=== PATIENT | female | born 1970 | race Caucasian/White ===

== ENCOUNTER → 2016-09-30 | Outpatient (CLI) | payer OTHER | LOC: MC.RAD 09:46 | DX: Z12.31 Encounter for screening mammogram for malignant neoplasm of breast (principal) ==

== ENCOUNTER → 2017-10-02 | Outpatient (CLI) | payer OTHER | LOC: MC.RAD 14:39 | DX: Z12.31 Encounter for screening mammogram for malignant neoplasm of breast (principal) ==

== ENCOUNTER → 2019-01-20 | Outpatient (CLI) | payer OTHER | LOC: MC.RAD 01-04 08:45 | DX: Z12.31 Encounter for screening mammogram for malignant neoplasm of breast (principal) ==

== ENCOUNTER → 2020-02-24 | Outpatient (CLI) | payer OTHER | LOC: MC.RAD 10:41 | DX: Z12.31 Encounter for screening mammogram for malignant neoplasm of breast (principal) ==

== ENCOUNTER → 2021-02-28 | Outpatient (CLI) | payer OTHER ==
[~2021-02-28] MED LIST: BYSTOLIC5 MG PO; CRESTOR20 MG PO; ESTROVEN MAX400 MCG; LEVOXYL0.1 MG PO; NORCO 325 MG-51 TAB PO; NORVASC 5MG5 MG/TAB PO; PYRIDIUM 100MG100 MG PO; ZOLOFT 100MG100 MG PO
== END ==
LOC: MC.RAD 14:03
DX: Z12.31 Encounter for screening mammogram for malignant neoplasm of breast (principal)

== ENCOUNTER 2021-05-08 07:58 | Day surgery (SDC) | payer OTHER ==
[2021-05-08] VITALS (7 sets, daily range): BP systolic 107–129; BP diastolic 61–77; PULSE 63–73; TEMP 97.6–98.2
[~2021-05-08] VITALS: Ht 160 cm; Wt 76.1 kg
[2021-05-08] MEDS ORDERED: ZOLOFT 100MG100 MG PO (08:24)
[2021-05-08] MEDS ORDERED: BYSTOLIC5 MG PO (08:25)
[2021-05-08] MEDS ORDERED: NORVASC 5MG5 MG/TAB PO (08:25)
[2021-05-08] MEDS ORDERED: LEVOXYL0.1 MG PO (08:26)
[2021-05-08] MEDS ORDERED: CRESTOR20 MG PO (08:26)
[2021-05-08] MEDS ORDERED: ESTROVEN MAX400 MCG (08:27)
--- NOTE | 2021-05-08 08:50 | NUR ---
PATIENT ADMITTED INTO [facility] UNIT WALKING WITH A STEADY GAIT. ACCOMPANIED BY . PATIENT IS ALERT AND ORIENTED X 4. CONSENT EXPLAINED AND PATIENT SIGNED. ASSESSMENT COMPLETED. LUNGS CTA. HEART SOUNDS S1,S2 AND REGULAR. BOWEL SOUNDS HEARD. PEDAL PULSES +2.
--- NOTE | 2021-05-08 10:23 | NUR ---
Initial visit; Patient and her thanked Doll Wig Hackler for looking in on Margarita and offering comfort and prayer prior to her surgical procedure.
[2021-05-08] MEDS ORDERED: NORCO 325 MG-51 TAB PO (10:59)
[2021-05-08] MEDS ORDERED: PYRIDIUM 100MG100 MG PO (10:59)
--- NOTE | 2021-05-08 11:25 | NUR ---
PATIENT TRANSPORTED PER CART FROM PACU TO BAY 2 ACCOMPANIED BY MANAGER DIGITAL. MONITORS APPLED. VSS ON ROOM AIR. VERBAL REPORT RECEIVED. PATIENT'S IN ROOM. PATIENT RESTING WITH EYES CLOSED, DOES ANSWER QUESTIONS WHEN ASKED. PATIENT GIVEN ICE WATER TO DRINK.
--- NOTE | 2021-05-08 11:46 | NUR ---
VSS ON ROOM AIR. PATIENT MORE ALERT. TALKING WITH . PATIENT STATES HAS SOME BURNING BUT THIS IS TOLERABLE. DENIES NAUSEA. DECLINED FOOD AT THIS TIME.
--- NOTE | 2021-05-08 12:05 | NUR ---
VSS ON ROOM AIR. PATIENT WATCHING TV AND TALKING WITH . PATIENT STATES BURNING INCREASING ALITTLE. ENCOURAGED TO EAT FOOD THEN CAN GIVE PO PAIN MADE. PATIENT GIVEN SODA CRAKERS.
--- NOTE | 2021-05-08 12:21 | NUR ---
VSS ON ROOM AIR. PATIENT TOLERATES CRACKERS AND WATER WITHOUT PROBLEMS. PATIENT GIVEN PO PAIN MED ORDERED. PATIENT TALKS WITH STAFF AND .
--- NOTE | 2021-05-08 12:40 | NUR ---
VSS ON ROOM AIR. PATIENT AMBULATES TO RESTROOM WITH STEADY GAIT. PATIENT VOIDS WITHOUT PROBLEMS. PATIENT STATES PAIN MED IS BEGINING TO HELP. 1246 VSS CONTINUE STABLE. PATIENT DENIES NAUSEA. IV SITE DC'D WITH CATHETER TIP INTACT. PRESSURE AND BANDAGE APPLIED. 1250 DISCHARGE INSTRUCTIONS GIVEN VERBAL AND DISCHARGE PACKET GIVEN TO PATIENT. PATIENT AND VOICED UNDERSTANDING AND QUESTIONS ANSWERED. PATIENT CHANGES INTO STREET CLOTHES. 1255 PATIENT DISCHARGED PER WHEEL CHAIR [facility] .
== END 2021-05-08 12:55 | disposition home or self-care (01) ==
LOC: SDCO 07:58
DX: N30.90 Cystitis, unspecified without hematuria (principal); R39.89 Other symptoms and signs involving the genitourinary system; R30.0 Dysuria; R35.0 Frequency of micturition; I10 Essential (primary) hypertension; F41.9 Anxiety disorder, unspecified; F32.9 Major depressive disorder, single episode, unspecified; E03.9 Hypothyroidism, unspecified; K21.9 Gastro-esophageal reflux disease without esophagitis; E78.2 Mixed hyperlipidemia; Z20.822 Contact with and (suspected) exposure to COVID-19; Z79.890 Hormone replacement therapy; Z79.899 Other long term (current) drug therapy
CPT/HCPCS: J0690; J1100; J1885; J2405; J2704; J3010; J7120

== ENCOUNTER → 2022-03-01 | Outpatient (CLI) | payer OTHER | LOC: MC.RAD 09:07 | DX: Z12.31 Encounter for screening mammogram for malignant neoplasm of breast (principal) ==

== ENCOUNTER → 2022-03-26 | Outpatient (CLI) | payer OTHER ==
[~2022-03-26] MED LIST changes: +ATARAX 10MG10 MG/TAB PO
== END ==
LOC: COL.RAD 08:13
DX: R22.1 Localized swelling, mass and lump, neck (principal)

== ENCOUNTER 2022-03-29 13:14 | Day surgery (SDC) | payer OTHER ==
[~2022-03-29] VITALS: Ht 160 cm; Wt 77.2 kg
[~2022-03-29 13:14] MED LIST changes: -ATARAX 10MG10 MG/TAB PO
[2022-03-29 14:44] VITALS: BP 160/99; PULSE 61; TEMP 98.1
[2022-03-29] MEDS ORDERED: ATARAX 10MG10 MG/TAB PO (14:44)
[2022-03-29 16:55] VITALS: BP 148/83; PULSE 62; TEMP 97.2
[2022-03-29 17:00] VITALS: BP 136/85; PULSE 53
[2022-03-29 17:15] VITALS: BP 156/90; PULSE 49
[2022-03-29 17:30] VITALS: BP 169/100; PULSE 53
--- NOTE | 2022-03-29 17:50 | NUR ---
1655 Pt returns from endo procedure via cart and RN assist to GI [facility] 2. Pt ambulates from cart to recliner with RN assist. Monitors on and alarms set. Call light within reach. Report received from PAMELA Klein. Pt drowsy but answering questions appropriately. Pt requests water and muffin. Pt denies any pain or nausea. Pt's present in room. 1710 Pt taking food and drink well. No complications noted. Pt now alert and oriented. 1740 Discharge instructions given to pt and pt's . All questions answered to their satisfaction. Handed to pt are a thank you card and discharge information. 1750 Pt transferred out of the hospital via wheelchair and this RN assist, to private vehicle driven by pt's .
== END 2022-03-29 17:50 | disposition home or self-care (01) ==
LOC: SDCO 13:14
DX: D12.0 Benign neoplasm of cecum (principal)
CPT/HCPCS: J2704; J3010; J7030

== ENCOUNTER → 2024-05-05 | Outpatient (CLI) | payer OTHER ==
[~2024-05-05] MED LIST changes: +ATARAX 10MG10 MG/TAB PO; +VIVELLE-DO0.025 MG/2 TD
== END ==
LOC: MC.RAD 11:04
DX: Z12.31 Encounter for screening mammogram for malignant neoplasm of breast (principal)